=== PATIENT | male | born 1955 | race Two or more races ===

== ENCOUNTER 2018-11-22 01:00 | Emergency (ER) | payer BC ==
[~2018-11-22] VITALS: Ht 162.6 cm; Wt 80.6 kg
[2018-11-22 02:56] VITALS: BP 140/79
== END 2018-11-22 03:02 | disposition home or self-care (01) ==
LOC: ED 02:17
DX: R07.89 Other chest pain (principal); I10 Essential (primary) hypertension; R06.02 Shortness of breath; F17.210 Nicotine dependence, cigarettes, uncomplicated
CPT/HCPCS: 36415; 71045; 80053; 83880; 84484; 85025; 93005; 99284

== ENCOUNTER 2019-06-19 20:52 | Inpatient (IN) | payer BC ==
[~2019-06-19] VITALS: Ht 162.6 cm; Wt 82.2 kg
[2019-06-19] MEDS ORDERED: ASPIRIN 81 MG TABLET CHEW ONE (21:17)
[2019-06-19] MEDS ORDERED: LOSA50TA14 PO (21:20)
--- NOTE | 2019-06-19 21:21 | NUR ---
THIS IS A 63 YO MALE COMING IN FOR INTERMITTENT CHEST PAIN STARTING WEDNESDAY. TODAY THE PAIN BECAME CONSTANT. PAIN IS LOCATED STERNALLY, WITH NO RADIATION, DESCRIBED AT PRESSURE ON CHEST, RATED 6-10 AT THIS TIME. DENIES SOB, DENIES N/V. [facility] INTACT BILATERAL UE AND LE. NO EDEMA NOTED. A&OX4, VSS, NAD AT THIS TIME. ALL MONITORING IN PLACE, NSR ON MONITOR. CALL LIGHT IN REACH, SPOUSE IN ROOM.
--- NOTE | 2019-06-19 21:23 | NUR ---
PATIENT AMBULATORY WITH STEADY GAIT TO XRAY
[2019-06-19] MEDS ORDERED: ASPIRIN 81 MG TABLET CHEW PO ONE (21:30)
[2019-06-19 21:31] LABS: BASOPHILS # (AUTO) 0.04 x10^3/uL (0-0.1); BASOPHILS % (AUTO) 0 % (0-1); EOSINOPHILS # (AUTO) 0.27 x10^3/uL (0-0.4); EOSINOPHILS % (AUTO) 3 % (1-7); LYMPHOCYTES # (AUTO) 3.16 x10^3/uL (1-3.4); LYMPHOCYTES % (AUTO) 30 % (22-44); MD NO; MEAN CORPUSCULAR HEMOGLOBIN 32.3 pg (27.5-34.5); MEAN CORPUSCULAR VOLUME 94.9 fL (81-97); MEAN PLATELET VOLUME 8.1 fL (7.4-10.4); MONOCYTES # (AUTO) 1.16 x10^3/uL (0.2-0.8); MONOCYTES % (AUTO) 11 % (2-9); NEUTROPHILS # (AUTO) 5.93 x10^3/uL (1.8-6.8); NEUTROPHILS % (AUTO) 56 % (42-75); PLATELET COUNT 219 x10^3/uL (130-400); RED BLOOD COUNT 5.13 x10^6/uL (4.38-5.82); RED CELL DISTRIBUTION WIDTH 12.9 % (9.4-14.8)
[2019-06-19 21:39] LABS: ALANINE AMINOTRANSFERASE 45 U/L (12-78); ALBUMIN 3.7 g/dL (3.4-5.0); ANION GAP 10 mmol/L (5-15); CALCIUM 8.6 mg/dL (8.5-10.1); CHLORIDE 105 mmol/L (98-107); CREATININE 1.24 mg/dL (0.7-1.3)
[2019-06-19 21:44] LABS: ALKALINE PHOSPHATASE 50 U/L (45-117); BILIRUBIN,TOTAL 0.5 mg/dL (0.2-1.0); TOTAL PROTEIN 7.3 g/dL (6.4-8.2); TROPONIN I 0.074 ng/mL (0.000-0.045)
[2019-06-19] MEDS ORDERED: ONDANSETRON 2MG/ML, 2ML IVPush ONE (22:30)
[2019-06-19] MEDS ORDERED: MORPHINE SULFATE 4 MG/ML, 1ML IVPush PRN (22:30)
[2019-06-19] MEDS ORDERED: SODIUM CHLORIDE FLUSH 10ML SYR IVF ONE (22:30)
[2019-06-19] MEDS ORDERED: ONDANSETRON 2MG/ML, 2ML ONE (22:45)
[2019-06-19] MEDS ORDERED: MORPHINE SULFATE 4 MG/ML, 1ML ONE (22:45)
--- NOTE | 2019-06-19 22:51 | NUR ---
PATIENT MEDICATED PER EMAR, TOLERATED WELL
[2019-06-19] MEDS ORDERED: NITROGLYCERIN OINT 2%, 1GM TP ONE ×2 (23:24→23:30)
--- NOTE | 2019-06-19 23:38 | NUR ---
REPORT GIVEN TO SAIMA STEEN. PLAN OF CARE DISCUSSED
[2019-06-19 23:57] VITALS: BP 154/90
[2019-06-20] MEDS ORDERED: ACETAMINOPHEN 325 MG TABLET PO PRN (04:30)
[2019-06-20] MEDS ORDERED: NITROGLYCERIN 0.4 MG/SPRAY SL PRN (04:30)
[2019-06-20] MEDS ORDERED: NITROGLYCERIN 0.4 MG BOTTLE (25 TABS) SL PRN (04:30)
[2019-06-20 04:57] VITALS: BP 146/84
[2019-06-20] MEDS: NICOTINE 21 MG/24 HR PATCH.TD24 TD SCH (04:59)
[2019-06-20] MEDS: NITROGLYCERIN OINT 2%, 1GM TP SCH ×4 (04:59→22:30)
[2019-06-20 05:02] LABS: BASOPHILS # (AUTO) 0.11 x10^3/uL (0-0.1); BASOPHILS % (AUTO) 1 % (0-1); EOSINOPHILS # (AUTO) 0.18 x10^3/uL (0-0.4); EOSINOPHILS % (AUTO) 1 % (1-7); LYMPHOCYTES # (AUTO) 2.83 x10^3/uL (1-3.4); LYMPHOCYTES % (AUTO) 21 % (22-44); MD NO; MEAN CORPUSCULAR HEMOGLOBIN 32.3 pg (27.5-34.5); MEAN CORPUSCULAR HGB CONC 33.6 g/dL (33.2-36.2); MEAN CORPUSCULAR VOLUME 96.2 fL (81-97); MEAN PLATELET VOLUME 8.2 fL (7.4-10.4); MONOCYTES # (AUTO) 1.26 x10^3/uL (0.2-0.8); MONOCYTES % (AUTO) 10 % (2-9); NEUTROPHILS # (AUTO) 8.86 x10^3/uL (1.8-6.8); NEUTROPHILS % (AUTO) 67 % (42-75); PLATELET COUNT 199 x10^3/uL (130-400); RED BLOOD COUNT 5.15 x10^6/uL (4.38-5.82)
[2019-06-20 05:03] LABS: ALANINE AMINOTRANSFERASE 49 U/L (12-78); ALBUMIN 3.9 g/dL (3.4-5.0); ANION GAP 6 mmol/L (5-15); CALCIUM 8.6 mg/dL (8.5-10.1); CHLORIDE 105 mmol/L (98-107); CHOLESTEROL, TOTAL 174 mg/dL (140-239); CREATININE 1.12 mg/dL (0.7-1.3)
[2019-06-20 05:08] LABS: ALKALINE PHOSPHATASE 54 U/L (45-117); BILIRUBIN,TOTAL 0.6 mg/dL (0.2-1.0); CHOL/HDL RATIO 3.3; HDL CHOL % 30 % (26-37); HDL CHOLESTEROL (DIRECT) 52 mg/dL (40-60); LDL CHOLESTEROL,CALCULATED 81 mg/dL (54-169); LDL/HDL RATIO 1.6 (0.5-3.0); TOTAL PROTEIN 7.7 g/dL (6.4-8.2); TRIGLYCERIDES 203 mg/dL (50-200); VLDL CHOLESTEROL 41 mg/dL (0-25)
[2019-06-20] MEDS: morphine SULFATE 10 MG/ML, 1ML IV PRN ×3 (05:24→13:03)
[2019-06-20] MEDS ORDERED: HEPARIN 25,000 UNITS/250ML PMX 250 ML IV PRN (06:00)
[2019-06-20] MEDS ORDERED: HEPARIN 5,000 UNITS/ML, 1ML IV ONE (06:00)
[2019-06-20] MEDS ORDERED: HEPARIN 5,000 UNITS/ML, 1ML IV PRN (06:00)
[2019-06-20 07:24] VITALS: BP 133/81
[2019-06-20] MEDS ORDERED: SODIUM CHLORIDE 0.9% 1,000 ML IV SCH ×3 (08:30→15:05)
[2019-06-20] MEDS: LOSARTAN 50MG TABLET PO SCH (09:00)
[2019-06-20] MEDS ORDERED: MIDAZOLAM 1 MG/ML, 5ML ONE (09:11)
[2019-06-20] MEDS ORDERED: FENTANYL PF 100 MCG/2ML ONE ×2 (09:11→13:31)
[2019-06-20] MEDS ORDERED: LIDOCAINE 2%, 20ML ONE (09:12)
[2019-06-20] MEDS ORDERED: BIVALIRUDIN 250 MG ONE ×4 (09:27→14:30)
[2019-06-20] MEDS ORDERED: ASPIRIN 325 MG TABLET EC ONE (10:03)
[2019-06-20] MEDS ORDERED: TICAGRELOR 90 MG TABLET ONE (10:03)
[2019-06-20] MEDS ORDERED: BIVALIRUDIN 250 MG in SODIUM CHLORIDE 0.9% 50 ML IV SCH ×2 (10:06→15:05)
[2019-06-20 12:54] VITALS: BP 129/74
[2019-06-20 13:13] VITALS: BP 125/79
[2019-06-20] MEDS ORDERED: MIDAZOLAM 1 MG/ML, 2ML ONE (13:31)
[2019-06-20] MEDS ORDERED: LIDOCAINE-MPF 1%, 5ML ONE (13:31)
[2019-06-20] MEDS ORDERED: VERAPAMIL 2.5 MG/ML, 2ML ONE (13:31)
[2019-06-20] MEDS ORDERED: HEPARIN 1,000 UNITS/ML, 10ML ONE (13:54)
[2019-06-20 19:38] VITALS: BP 128/79
[2019-06-20] MEDS: TICAGRELOR 90 MG TABLET PO SCH (19:47)
[2019-06-20] MEDS: ATORVASTATIN 40 MG TABLET PO SCH (19:47)
[2019-06-21 01:54] VITALS: BP 113/74
[2019-06-21] MEDS: NITROGLYCERIN OINT 2%, 1GM TP SCH ×4 (03:37→22:30)
[2019-06-21 04:42] LABS: ANION GAP 6 mmol/L (5-15); CALCIUM 8.7 mg/dL (8.5-10.1); CHLORIDE 110 mmol/L (98-107)
[2019-06-21 04:43] LABS: CREATININE 0.99 mg/dL (0.7-1.3)
[2019-06-21] MEDS ORDERED: ASPIRIN 325 MG TABLET EC PO SCH (06:00)
[2019-06-21 07:04] VITALS: BP 117/79
[2019-06-21] MEDS: NICOTINE 21 MG/24 HR PATCH.TD24 TD SCH (09:00)
[2019-06-21] MEDS: ASPIRIN 81 MG TABLET EC PO SCH (09:02)
[2019-06-21] MEDS: CARVEDILOL 3.125 MG TABLET PO SCH ×3 (09:02→22:28)
[2019-06-21] MEDS: TICAGRELOR 90 MG TABLET PO SCH ×2 (09:02→22:28)
[2019-06-21] MEDS: APIXABAN 5 MG TABLET PO SCH ×2 (09:02→22:28)
[2019-06-21] MEDS: LOSARTAN 50MG TABLET PO SCH (09:02)
[2019-06-21 12:55] VITALS: BP 109/69
[2019-06-21 18:39] VITALS: BP 130/81
[2019-06-21] MEDS: ATORVASTATIN 40 MG TABLET PO SCH (22:28)
[2019-06-22 00:43] VITALS: BP 114/75
[2019-06-22] MEDS: NITROGLYCERIN OINT 2%, 1GM TP SCH ×4 (04:15→22:02)
[2019-06-22 05:39] VITALS: BP 122/77
[2019-06-22] MEDS: CARVEDILOL 3.125 MG TABLET PO SCH ×3 (05:40→21:47)
[2019-06-22 07:23] VITALS: BP 119/83
[2019-06-22 09:29] VITALS: BP 114/77
[2019-06-22] MEDS: ASPIRIN 81 MG TABLET EC PO SCH (09:30)
[2019-06-22] MEDS: APIXABAN 5 MG TABLET PO SCH ×2 (09:30→20:13)
[2019-06-22] MEDS: LOSARTAN 50MG TABLET PO SCH (09:30)
[2019-06-22] MEDS: TICAGRELOR 90 MG TABLET PO SCH ×2 (09:35→20:13)
[2019-06-22] MEDS: NICOTINE 21 MG/24 HR PATCH.TD24 TD SCH (09:35)
[2019-06-22 13:51] VITALS: BP 139/80
[2019-06-22 18:56] VITALS: BP 136/85
[2019-06-22] MEDS: ATORVASTATIN 40 MG TABLET PO SCH (20:13)
[2019-06-23 00:51] VITALS: BP 144/82
[2019-06-23] MEDS: NITROGLYCERIN OINT 2%, 1GM TP SCH ×2 (04:30→10:04)
[2019-06-23 04:54] LABS: BASOPHILS # (AUTO) 0.05 x10^3/uL (0-0.1); BASOPHILS % (AUTO) 1 % (0-1); EOSINOPHILS # (AUTO) 0.31 x10^3/uL (0-0.4); EOSINOPHILS % (AUTO) 3 % (1-7); LYMPHOCYTES # (AUTO) 2.77 x10^3/uL (1-3.4); LYMPHOCYTES % (AUTO) 27 % (22-44); MD NO; MEAN CORPUSCULAR HEMOGLOBIN 32.1 pg (27.5-34.5); MEAN CORPUSCULAR HGB CONC 33.5 g/dL (33.2-36.2); MEAN CORPUSCULAR VOLUME 95.9 fL (81-97); MEAN PLATELET VOLUME 8.2 fL (7.4-10.4); MONOCYTES % (AUTO) 11 % (2-9); NEUTROPHILS % (AUTO) 59 % (42-75); PLATELET COUNT 183 x10^3/uL (130-400); RED BLOOD COUNT 4.61 x10^6/uL (4.38-5.82); RED CELL DISTRIBUTION WIDTH 12.8 % (9.4-14.8)
[2019-06-23 05:11] LABS: ALBUMIN 3.1 g/dL (3.4-5.0); ANION GAP 7 mmol/L (5-15); CALCIUM 8.3 mg/dL (8.5-10.1); CHLORIDE 109 mmol/L (98-107)
[2019-06-23 05:14] LABS: ALANINE AMINOTRANSFERASE 38 U/L (12-78); ALKALINE PHOSPHATASE 40 U/L (45-117); BILIRUBIN,TOTAL 0.7 mg/dL (0.2-1.0); CREATININE 0.94 mg/dL (0.7-1.3); TOTAL PROTEIN 6.6 g/dL (6.4-8.2)
[2019-06-23] MEDS: CARVEDILOL 3.125 MG TABLET PO SCH (05:47)
[2019-06-23 07:21] VITALS: BP 117/79
[2019-06-23 10:03] VITALS: BP 114/73
[2019-06-23] MEDS: NICOTINE 21 MG/24 HR PATCH.TD24 TD SCH (10:03)
[2019-06-23] MEDS: ASPIRIN 81 MG TABLET EC PO SCH (10:03)
[2019-06-23] MEDS: LOSARTAN 50MG TABLET PO SCH (10:03)
[2019-06-23] MEDS: TICAGRELOR 90 MG TABLET PO SCH (10:03)
[2019-06-23] MEDS: APIXABAN 5 MG TABLET PO SCH (10:03)
[2019-06-23] MEDS ORDERED: ATOR40TA78 PO (12:52)
[2019-06-23] MEDS ORDERED: TICA90TA PO (12:52)
[2019-06-23] MEDS ORDERED: ASPI81TA45 PO (12:52)
[2019-06-23] MEDS ORDERED: APIX5TAB PO (12:52)
[2019-06-23] MEDS ORDERED: CARV3.1212 PO (12:52)
== END 2019-06-23 15:00 | disposition home or self-care (01) | DRG 247 ==
LOC: ED 22:12 → EDIP 23:36 → 5SO 23:50 → DCLOUNGE 06-23 14:34
PROVIDERS: ADMIT Family Medicine; ATTEND Internal Medicine
PROC: 027135Z Dilation of Coronary Artery, Two Arteries with Two Drug-eluting Intraluminal Devices, Percutaneous Approach (ICD-10-PCS; principal; 2019-06-20)
PROC: 4A023N7 Measurement of Cardiac Sampling and Pressure, Left Heart, Percutaneous Approach (ICD-10-PCS; 2019-06-20)
PROC: B211YZZ Fluoroscopy of Multiple Coronary Arteries using Other Contrast (ICD-10-PCS; 2019-06-20)
DX: I21.4 Non-ST elevation (NSTEMI) myocardial infarction (principal); D68.69 Other thrombophilia; I48.92 Unspecified atrial flutter; D72.829 Elevated white blood cell count, unspecified; F17.210 Nicotine dependence, cigarettes, uncomplicated; I10 Essential (primary) hypertension; I25.10 Atherosclerotic heart disease of native coronary artery without angina pectoris; I44.7 Left bundle-branch block, unspecified; I48.0 Paroxysmal atrial fibrillation
CPT/HCPCS: 36415; 93454; 96374; 99291; C9600; J3490; 71045; 71046; 80048; 80053; 80061; 83036; 83735; 84443; 84484; 85025; 93005; 93306; 93356; 99156; 99157; C1760; C1769; C1894; G0378; J0583; J1644; J2250; J2405; J3010; C1725; C1874; C1887; J2270; J7030; Q9967

== ENCOUNTER → 2019-10-05 | Outpatient (CLI) | payer BC ==
[~2019-10-05] MED LIST: APIX5TAB PO; ASPI81TA45 PO; ATOR40TA78 PO; CARV3.1212 PO; LOSA50TA14 PO; TICA90TA PO
== END | disposition home or self-care (01) ==
LOC: CFH 09:46
PROVIDERS: ATTEND Internal Medicine Cardiovascular Disease
DX: I08.1 Rheumatic disorders of both mitral and tricuspid valves (principal); I25.10 Atherosclerotic heart disease of native coronary artery without angina pectoris; I10 Essential (primary) hypertension; E78.5 Hyperlipidemia, unspecified; Z87.891 Personal history of nicotine dependence
CPT/HCPCS: 93306; 93356

== ENCOUNTER → 2019-10-17 | Outpatient (CLI) | payer BC ==
[~2019-10-17] MED LIST changes: +REGADENOSON 0.4 MG/5 ML SYRINGE ONE
== END | disposition home or self-care (01) ==
LOC: CFH 08:17
PROVIDERS: ATTEND Internal Medicine Cardiovascular Disease
DX: I21.09 ST elevation (STEMI) myocardial infarction involving other coronary artery of anterior wall (principal); I25.10 Atherosclerotic heart disease of native coronary artery without angina pectoris; I48.91 Unspecified atrial fibrillation
CPT/HCPCS: 78452; 93017; A9502; J2785